=== PATIENT | female | born 1965 | race African-American/Black ===

== ENCOUNTER 2021-07-18 14:05 | Inpatient (IN) ==
[2021-07-18] MEDS ORDERED: SODIUM CHLORIDE 0.9% 500 ML IV STA (16:06)
[2021-07-18 16:09] LABS: Urine Appearance Clear (Clear); Urine Color Dark Yellow (Yellow)
[2021-07-18 16:10] LABS: Urine Specific Gravity > 1.030 (1.001-1.035)
[2021-07-18 16:11] LABS: Bilirubin,Urine Small mg/dL (Negative); Blood, Urine Trace mg/dL (Negative); Glucose,Urine (UA) Negative (Negative); Ketones,Urine 40 mg/dL (Negative); Nitrite,Urine Negative (Negative); Protein,Urine >=300 MG/DL
[2021-07-18 16:16] LABS: Mucus,Urine Moderate /LPF (Occasional); RBC,Urine 21 /HPF (0-4); Squamous Epithelial Cell,Urine Occasional /HPF (0-10)
[2021-07-18 17:19] LABS: Basophils % 0.4 % (0.0-0.8); Eosinophils # 0.1 10*3/uL (0.0-0.87); Eosinophils % 0.7 % (0.00-10.9); Hematocrit 36.4 VOL% (35.7-47.0); Hemoglobin 11.4 GM/DL (12.0-16.0); Immature Granulocytes % 0.4 %; Immature Granulocytes Absolute 0.03 #; Lymphocytes # 1.5 10*3/uL (1.4-4.0); Lymphocytes % 17.7 % (21.3-54.2); Mean Corpuscular HGB Conc 31.3 GM/DL (32-36); Mean Corpuscular Volume 96.8 FL (87-102); Mean Platelet Volume 8.1 FL (9.6-12.0); Monocytes % 4.9 % (1.7-12.7); Neutrophils % 75.9 % (38.7-73.9); Platelet Count 353 T/CUMM (130-400); Red Blood Count 3.76 MC/CUMM (3.8-5.5); Red Cell Distribution Width 13.4 % (9.3-17.3); White Blood Count 8.3 T/CUMM (4-12)
[2021-07-18 17:33] LABS: Albumin 3.3 G/DL (3.4-5.0); Bilirubin,Total 0.5 MG/DL (0.20-1.00); Calcium 9.1 MG/DL (8.5-10.1); Osmolality,Calculated 266.2 MOS/KG (273-304); Potassium 3.2 MMOL/L (3.5-5.1)
[2021-07-18] MEDS ORDERED: PIPERACILLIN/TAZOBACTAM 3,375 MG in SODIUM CHLORIDE 0.9% 100 ML IV STA (20:46)
[2021-07-18] MEDS ORDERED: ONDANSETRON 4 MG/2 ML VIAL IV PRN (20:56)
[2021-07-18] MEDS ORDERED: ACETAMINOPHEN 325 MG TABLET PO PRN (20:56)
[2021-07-18] MEDS ORDERED: MORPHINE 4 MG/1 ML VIAL IV PRN (21:15)
[2021-07-18] MEDS: SODIUM CHLORIDE 0.9% 1,000 ML IV SCH (21:30)
[2021-07-18] MEDS: HYDROmorphone 2 MG/1 ML VIAL IV PRN (23:37)
[2021-07-19] MEDS: HYDROmorphone 2 MG/1 ML VIAL IV PRN ×2 (04:35→09:00)
[2021-07-19] MEDS: PROMETHAZINE 25 MG/1 ML VIAL IM PRN (06:39)
[2021-07-19] MEDS: LEVOTHYROXINE 50 MCG TABLET PO SCH (06:39)
[2021-07-19] MEDS ORDERED: POTASSIUM CHLORIDE 20 MEQ TABLET PO PRN (07:09)
[2021-07-19] MEDS: cefTRIAXone 1,000 MG in SODIUM CHLORIDE 0.9% 100 ML IV SCH (07:30)
[2021-07-19 07:38] LABS: Basophils % 0.6 % (0.0-0.8); Eosinophils # 0.1 10*3/uL (0.0-0.87); Eosinophils % 1.1 % (0.00-10.9); Hematocrit 34.6 VOL% (35.7-47.0); Hemoglobin 10.8 GM/DL (12.0-16.0); Immature Granulocytes % 0.6 %; Immature Granulocytes Absolute 0.04 #; Lymphocytes # 1.5 10*3/uL (1.4-4.0); Lymphocytes % 24.1 % (21.3-54.2); Mean Corpuscular HGB Conc 31.2 GM/DL (32-36); Mean Platelet Volume 8.1 FL (9.6-12.0); Monocytes % 5.5 % (1.7-12.7); Neutrophils % 68.1 % (38.7-73.9); Platelet Count 345 T/CUMM (130-400); Red Blood Count 3.53 MC/CUMM (3.8-5.5); Red Cell Distribution Width 13.5 % (9.3-17.3); White Blood Count 6.2 T/CUMM (4-12)
[2021-07-19] MEDS: atenoloL 50 MG TABLET PO SCH ×2 (09:00→22:46)
[2021-07-19] MEDS: DULoxetine 30 MG CAPSULE PO SCH (09:00)
[2021-07-19] MEDS: LOSARTAN 25 MG TABLET PO SCH (09:00)
[2021-07-19] MEDS: PANTOPRAZOLE 40 MG TABLET PO SCH (09:00)
[2021-07-19] MEDS: GABAPENTIN 300 MG CAPSULE PO SCH ×3 (09:00→22:45)
[2021-07-19 09:16] LABS: Albumin 2.9 G/DL (3.4-5.0); Bilirubin,Total 0.4 MG/DL (0.20-1.00); Calcium 8.7 MG/DL (8.5-10.1); Potassium 3.4 MMOL/L (3.5-5.1); Total Protein 6.5 G/DL (6.4-8.2)
[2021-07-19] MEDS: oxyCODONE/ACETAMINOPHEN 5-325 MG TABLET PO PRN ×2 (10:00→16:57)
[2021-07-19] MEDS: HYDROXYCHLOROQUINE 200 MG TABLET PO SCH ×2 (14:05→22:45)
[2021-07-19] MEDS: SODIUM CHLORIDE 0.9% 1,000 ML IV SCH (14:08)
[2021-07-19] MEDS: POLYETHYLENE GLYCOL POWDER 17 GM PACK PO SCH (16:57)
[2021-07-20] MEDS: SODIUM CHLORIDE 0.9% 1,000 ML IV SCH ×2 (01:12→13:02)
[2021-07-20] MEDS: LEVOTHYROXINE 50 MCG TABLET PO SCH (05:34)
[2021-07-20] MEDS: HYDROmorphone 1 MG/1 ML SYRINGE IV PRN ×4 (06:28→21:28)
[2021-07-20] MEDS: PROMETHAZINE 25 MG/1 ML VIAL IM PRN (06:34)
[2021-07-20 06:37] LABS: Basophils # 0.1 10*3/uL (0.0-0.2); Basophils % 0.6 % (0.0-0.8); Eosinophils % 0.2 % (0.00-10.9); Hemoglobin 11.2 GM/DL (12.0-16.0); Immature Granulocytes % 0.7 %; Immature Granulocytes Absolute 0.06 #; Lymphocytes # 1.2 10*3/uL (1.4-4.0); Lymphocytes % 14.8 % (21.3-54.2); Mean Corpuscular HGB Conc 31.1 GM/DL (32-36); Mean Corpuscular Volume 98.1 FL (87-102); Mean Platelet Volume 8.1 FL (9.6-12.0); Monocytes % 4.7 % (1.7-12.7); Platelet Count 390 T/CUMM (130-400); Red Blood Count 3.67 MC/CUMM (3.8-5.5); Red Cell Distribution Width 13.2 % (9.3-17.3); White Blood Count 8.4 T/CUMM (4-12)
[2021-07-20 06:49] LABS: Calcium 9.1 MG/DL (8.5-10.1); Osmolality,Calculated 256.8 MOS/KG (273-304); Potassium 3.2 MMOL/L (3.5-5.1)
[2021-07-20] MEDS: POLYETHYLENE GLYCOL POWDER 17 GM PACK PO SCH ×2 (10:40→21:26)
[2021-07-20] MEDS: GABAPENTIN 300 MG CAPSULE PO SCH ×3 (10:40→21:26)
[2021-07-20] MEDS: PANTOPRAZOLE 40 MG TABLET PO SCH (10:40)
[2021-07-20] MEDS: LOSARTAN 25 MG TABLET PO SCH (10:40)
[2021-07-20] MEDS: atenoloL 50 MG TABLET PO SCH ×2 (10:40→21:26)
[2021-07-20] MEDS: DULoxetine 30 MG CAPSULE PO SCH (10:40)
[2021-07-20] MEDS: HYDROXYCHLOROQUINE 200 MG TABLET PO SCH ×2 (10:40→21:26)
[2021-07-20] MEDS: cefTRIAXone 1,000 MG in SODIUM CHLORIDE 0.9% 100 ML IV SCH (10:42)
[2021-07-20] MEDS: VANCOMYCIN INJ 1,250 MG in SODIUM CHLORIDE 0.9% 250 ML IV SCH ×2 (11:28→21:27)
[2021-07-20] MEDS ORDERED: POTASSIUM CHLORIDE 20 MEQ TABLET PO ONE (13:00)
[2021-07-20] MEDS: MAGNESIUM CHLORIDE 64 MG TABLET PO SCH (13:02)
[2021-07-20] MEDS: DOCUSATE SODIUM 100 MG CAPSULE PO SCH (21:24)
[2021-07-21] MEDS: HYDROmorphone 1 MG/1 ML SYRINGE IV PRN ×3 (02:17→22:05)
[2021-07-21] MEDS: SODIUM CHLORIDE 0.9% 1,000 ML IV SCH ×2 (02:47→17:29)
[2021-07-21] MEDS: oxyCODONE/ACETAMINOPHEN 5-325 MG TABLET PO PRN ×2 (05:03→10:30)
[2021-07-21] MEDS: PROMETHAZINE 25 MG/1 ML VIAL IM PRN (05:07)
[2021-07-21 05:23] LABS: Basophils # 0.1 10*3/uL (0.0-0.2); Basophils % 0.9 % (0.0-0.8); Eosinophils # 0.1 10*3/uL (0.0-0.87); Eosinophils % 1.4 % (0.00-10.9); Hematocrit 37.6 VOL% (35.7-47.0); Hemoglobin 11.7 GM/DL (12.0-16.0); Immature Granulocytes % 0.7 %; Immature Granulocytes Absolute 0.05 #; Lymphocytes # 1.4 10*3/uL (1.4-4.0); Lymphocytes % 19.3 % (21.3-54.2); Mean Corpuscular HGB Conc 31.1 GM/DL (32-36); Mean Corpuscular Volume 97.7 FL (87-102); Mean Platelet Volume 8.1 FL (9.6-12.0); Neutrophils % 70.7 % (38.7-73.9); Platelet Count 375 T/CUMM (130-400); Red Blood Count 3.85 MC/CUMM (3.8-5.5); Red Cell Distribution Width 13.4 % (9.3-17.3); White Blood Count 7.1 T/CUMM (4-12)
[2021-07-21 05:51] LABS: Calcium 8.9 MG/DL (8.5-10.1); Osmolality,Calculated 267.1 MOS/KG (273-304); Potassium 3.6 MMOL/L (3.5-5.1)
[2021-07-21] MEDS: LEVOTHYROXINE 50 MCG TABLET PO SCH (06:01)
[2021-07-21] MEDS: LINACLOTIDE 145 MCG CAPSULE PO SCH (10:27)
[2021-07-21] MEDS: DOCUSATE SODIUM 100 MG CAPSULE PO SCH ×2 (10:27→22:01)
[2021-07-21] MEDS: MAGNESIUM CHLORIDE 64 MG TABLET PO SCH (10:28)
[2021-07-21] MEDS: DULoxetine 30 MG CAPSULE PO SCH (10:28)
[2021-07-21] MEDS: LOSARTAN 25 MG TABLET PO SCH (10:29)
[2021-07-21] MEDS: GABAPENTIN 300 MG CAPSULE PO SCH ×3 (10:29→22:00)
[2021-07-21] MEDS: HYDROXYCHLOROQUINE 200 MG TABLET PO SCH ×2 (10:29→22:00)
[2021-07-21] MEDS: PANTOPRAZOLE 40 MG TABLET PO SCH (10:29)
[2021-07-21] MEDS: atenoloL 50 MG TABLET PO SCH ×2 (10:29→22:00)
[2021-07-21] MEDS: POLYETHYLENE GLYCOL POWDER 17 GM PACK PO SCH ×2 (10:30→22:01)
[2021-07-21] MEDS: CHOLECALCIFEROL 1,000 UNIT TABLET PO SCH (10:35)
[2021-07-21] MEDS: POTASSIUM CHLORIDE 20 MEQ TABLET PO SCH (10:40)
[2021-07-21] MEDS: VANCOMYCIN INJ 1,250 MG in SODIUM CHLORIDE 0.9% 250 ML IV SCH ×2 (10:41→21:59)
[2021-07-21] MEDS: MULTIVITAMIN (BEROCCA) TABLET PO SCH (14:57)
[2021-07-21] MEDS: APIXABAN 5 MG TABLET PO SCH (22:12)
[2021-07-22] MEDS: HYDROmorphone 1 MG/1 ML SYRINGE IV PRN ×4 (02:59→21:43)
[2021-07-22 05:48] LABS: Basophils # 0.1 10*3/uL (0.0-0.2); Basophils % 0.9 % (0.0-0.8); Eosinophils # 0.1 10*3/uL (0.0-0.87); Eosinophils % 1.3 % (0.00-10.9); Hematocrit 40.5 VOL% (35.7-47.0); Hemoglobin 12.3 GM/DL (12.0-16.0); Immature Granulocytes % 0.4 %; Immature Granulocytes Absolute 0.03 #; Lymphocytes # 1.7 10*3/uL (1.4-4.0); Lymphocytes % 21.2 % (21.3-54.2); Mean Corpuscular HGB Conc 30.4 GM/DL (32-36); Mean Platelet Volume 8.3 FL (9.6-12.0); Monocytes % 5.3 % (1.7-12.7); Neutrophils % 70.9 % (38.7-73.9); Platelet Count 408 T/CUMM (130-400); Red Blood Count 4.09 MC/CUMM (3.8-5.5); Red Cell Distribution Width 13.5 % (9.3-17.3); White Blood Count 7.9 T/CUMM (4-12)
[2021-07-22 05:58] LABS: Calcium 9.6 MG/DL (8.5-10.1); Potassium 3.5 MMOL/L (3.5-5.1)
[2021-07-22] MEDS: LEVOTHYROXINE 50 MCG TABLET PO SCH (06:28)
[2021-07-22] MEDS: SODIUM CHLORIDE 0.9% 1,000 ML IV SCH (09:50)
[2021-07-22] MEDS: DULoxetine 30 MG CAPSULE PO SCH (09:51)
[2021-07-22] MEDS: atenoloL 50 MG TABLET PO SCH ×2 (09:51→21:39)
[2021-07-22] MEDS: POTASSIUM CHLORIDE 20 MEQ TABLET PO SCH (09:52)
[2021-07-22] MEDS: MAGNESIUM CHLORIDE 64 MG TABLET PO SCH (09:52)
[2021-07-22] MEDS: DOCUSATE SODIUM 100 MG CAPSULE PO SCH ×2 (09:52→21:39)
[2021-07-22] MEDS: CHOLECALCIFEROL 1,000 UNIT TABLET PO SCH (09:53)
[2021-07-22] MEDS: HYDROXYCHLOROQUINE 200 MG TABLET PO SCH ×2 (09:54→21:39)
[2021-07-22] MEDS: PANTOPRAZOLE 40 MG TABLET PO SCH (09:54)
[2021-07-22] MEDS: LOSARTAN 25 MG TABLET PO SCH (09:55)
[2021-07-22] MEDS: GABAPENTIN 300 MG CAPSULE PO SCH ×3 (09:55→21:39)
[2021-07-22] MEDS: LINACLOTIDE 145 MCG CAPSULE PO SCH (09:55)
[2021-07-22] MEDS: APIXABAN 5 MG TABLET PO SCH ×2 (09:55→21:39)
[2021-07-22] MEDS: POLYETHYLENE GLYCOL POWDER 17 GM PACK PO SCH ×2 (09:56→21:28)
[2021-07-22] MEDS: VANCOMYCIN INJ 1,250 MG in SODIUM CHLORIDE 0.9% 250 ML IV SCH ×2 (10:05→22:25)
[2021-07-22] MEDS: MULTIVITAMIN (BEROCCA) TABLET PO SCH (10:06)
[2021-07-22] MEDS: oxyCODONE/ACETAMINOPHEN 5-325 MG TABLET PO PRN (13:22)
[2021-07-22] MEDS ORDERED: TAMSULOSIN 0.4 MG CAPSULE PO ONE (15:14)
[2021-07-22] MEDS: PHENAZOPYRIDINE 95 MG TABLET PO SCH (17:10)
[2021-07-22] MEDS: TAMSULOSIN 0.4 MG CAPSULE PO SCH (21:39)
[2021-07-23] MEDS: oxyCODONE/ACETAMINOPHEN 5-325 MG TABLET PO PRN (03:50)
[2021-07-23] MEDS: LEVOTHYROXINE 50 MCG TABLET PO SCH (05:51)
[2021-07-23] MEDS: HYDROmorphone 1 MG/1 ML SYRINGE IV PRN ×4 (05:58→21:01)
[2021-07-23 06:25] LABS: Basophils # 0.1 10*3/uL (0.0-0.2); Eosinophils # 0.1 10*3/uL (0.0-0.87); Eosinophils % 1.6 % (0.00-10.9); Hematocrit 33.9 VOL% (35.7-47.0); Hemoglobin 10.7 GM/DL (12.0-16.0); Immature Granulocytes % 0.8 %; Immature Granulocytes Absolute 0.05 #; Lymphocytes # 1.2 10*3/uL (1.4-4.0); Lymphocytes % 19.5 % (21.3-54.2); Mean Corpuscular HGB Conc 31.6 GM/DL (32-36); Mean Corpuscular Volume 97.4 FL (87-102); Monocytes % 7.2 % (1.7-12.7); Neutrophils % 69.9 % (38.7-73.9); Platelet Count 340 T/CUMM (130-400); Red Blood Count 3.48 MC/CUMM (3.8-5.5); Red Cell Distribution Width 13.8 % (9.3-17.3); White Blood Count 6.3 T/CUMM (4-12)
[2021-07-23 06:47] LABS: Calcium 8.7 MG/DL (8.5-10.1); Osmolality,Calculated 274.5 MOS/KG (273-304); Potassium 3.3 MMOL/L (3.5-5.1)
[2021-07-23] MEDS: MAGNESIUM CHLORIDE 64 MG TABLET PO SCH (10:22)
[2021-07-23] MEDS: HYDROXYCHLOROQUINE 200 MG TABLET PO SCH ×2 (10:23→20:56)
[2021-07-23] MEDS: DULoxetine 30 MG CAPSULE PO SCH (10:23)
[2021-07-23] MEDS: DOCUSATE SODIUM 100 MG CAPSULE PO SCH ×2 (10:24→21:01)
[2021-07-23] MEDS: MULTIVITAMIN (BEROCCA) TABLET PO SCH (10:24)
[2021-07-23] MEDS: PHENAZOPYRIDINE 95 MG TABLET PO SCH ×2 (10:24→16:04)
[2021-07-23] MEDS: LOSARTAN 25 MG TABLET PO SCH (10:24)
[2021-07-23] MEDS: APIXABAN 5 MG TABLET PO SCH ×2 (10:25→20:57)
[2021-07-23] MEDS: POTASSIUM CHLORIDE 20 MEQ TABLET PO SCH (10:26)
[2021-07-23] MEDS: GABAPENTIN 300 MG CAPSULE PO SCH ×3 (10:26→20:56)
[2021-07-23] MEDS: atenoloL 50 MG TABLET PO SCH ×2 (10:27→20:57)
[2021-07-23] MEDS: PANTOPRAZOLE 40 MG TABLET PO SCH (10:27)
[2021-07-23] MEDS: CHOLECALCIFEROL 1,000 UNIT TABLET PO SCH (10:28)
[2021-07-23] MEDS: VANCOMYCIN INJ 1,250 MG in SODIUM CHLORIDE 0.9% 250 ML IV SCH ×2 (10:28→21:31)
[2021-07-23] MEDS: SODIUM CHLORIDE 0.9% 1,000 ML IV SCH ×2 (10:29→17:13)
[2021-07-23] MEDS: LINACLOTIDE 145 MCG CAPSULE PO SCH (10:32)
[2021-07-23] MEDS: POLYETHYLENE GLYCOL POWDER 17 GM PACK PO SCH ×2 (10:33→21:01)
[2021-07-23 11:19] LABS: Bacteria,Urine Occasional /HPF (Few); Mucus,Urine Moderate /LPF (Occasional); RBC,Urine 5 /HPF (0-4); Squamous Epithelial Cell,Urine Occasional /HPF (0-10)
[2021-07-23 11:20] LABS: Protein,Urine Negative (Negative); Urine Appearance Clear (Clear); Urine Color Amber (Yellow); Urine pH 5.5 (4.5-8.0)
[2021-07-23 11:21] LABS: Bilirubin,Urine Negative (Negative); Blood, Urine Trace mg/dL (Negative); Glucose,Urine (UA) Negative (Negative); Ketones,Urine Negative (Negative); Nitrite,Urine Positive (Negative); Urine Urobilinogen 0.2 eU/dL (<2.0)
[2021-07-23] MEDS ORDERED: cefTRIAXone 1,000 MG in SODIUM CHLORIDE 0.9% 100 ML IV SCH (13:30)
[2021-07-23] MEDS: TAMSULOSIN 0.4 MG CAPSULE PO SCH (20:56)
[2021-07-23] MEDS: LUBIPROSTONE 8 MCG CAPSULE PO SCH (20:56)
[2021-07-24] MEDS: HYDROmorphone 1 MG/1 ML SYRINGE IV PRN ×5 (01:51→21:34)
[2021-07-24] MEDS: SODIUM CHLORIDE 0.9% 1,000 ML IV SCH (05:44)
[2021-07-24 05:47] LABS: Basophils # 0.1 10*3/uL (0.0-0.2); Basophils % 0.9 % (0.0-0.8); Eosinophils # 0.1 10*3/uL (0.0-0.87); Eosinophils % 1.2 % (0.00-10.9); Hematocrit 34.8 VOL% (35.7-47.0); Hemoglobin 10.7 GM/DL (12.0-16.0); Immature Granulocytes % 0.5 %; Immature Granulocytes Absolute 0.03 #; Lymphocytes # 1.6 10*3/uL (1.4-4.0); Lymphocytes % 24.4 % (21.3-54.2); Mean Corpuscular HGB Conc 30.7 GM/DL (32-36); Mean Platelet Volume 8.2 FL (9.6-12.0); Monocytes % 6.8 % (1.7-12.7); Neutrophils % 66.2 % (38.7-73.9); Platelet Count 292 T/CUMM (130-400); Red Blood Count 3.55 MC/CUMM (3.8-5.5); Red Cell Distribution Width 13.8 % (9.3-17.3); White Blood Count 6.4 T/CUMM (4-12)
[2021-07-24] MEDS: LEVOTHYROXINE 50 MCG TABLET PO SCH (05:47)
[2021-07-24 06:20] LABS: Free T4 (Free Thyroxine) 0.62 NG/DL (0.76-1.46); Thyroid Stimulating Hormone 69.9 uIU/ml (0.358-3.74)
[2021-07-24 06:39] LABS: Calcium 8.9 MG/DL (8.5-10.1); Osmolality,Calculated 273.5 MOS/KG (273-304); Potassium 3.9 MMOL/L (3.5-5.1)
[2021-07-24] MEDS: LUBIPROSTONE 8 MCG CAPSULE PO SCH ×2 (09:26→21:23)
[2021-07-24] MEDS: LINACLOTIDE 145 MCG CAPSULE PO SCH (09:26)
[2021-07-24] MEDS: PANTOPRAZOLE 40 MG TABLET PO SCH (09:27)
[2021-07-24] MEDS: MULTIVITAMIN (BEROCCA) TABLET PO SCH (09:27)
[2021-07-24] MEDS: DULoxetine 30 MG CAPSULE PO SCH (09:27)
[2021-07-24] MEDS: PHENAZOPYRIDINE 95 MG TABLET PO SCH ×2 (09:27→17:08)
[2021-07-24] MEDS: CHOLECALCIFEROL 1,000 UNIT TABLET PO SCH (09:27)
[2021-07-24] MEDS: POTASSIUM CHLORIDE 20 MEQ TABLET PO SCH (09:27)
[2021-07-24] MEDS: LOSARTAN 25 MG TABLET PO SCH (09:28)
[2021-07-24] MEDS: MAGNESIUM CHLORIDE 64 MG TABLET PO SCH (09:28)
[2021-07-24] MEDS: atenoloL 50 MG TABLET PO SCH ×2 (09:28→21:23)
[2021-07-24] MEDS: APIXABAN 5 MG TABLET PO SCH ×2 (09:28→21:23)
[2021-07-24] MEDS: DOCUSATE SODIUM 100 MG CAPSULE PO SCH ×2 (09:28→21:24)
[2021-07-24] MEDS: GABAPENTIN 300 MG CAPSULE PO SCH ×3 (09:28→21:23)
[2021-07-24] MEDS: HYDROXYCHLOROQUINE 200 MG TABLET PO SCH ×2 (09:28→21:23)
[2021-07-24] MEDS: POLYETHYLENE GLYCOL POWDER 17 GM PACK PO SCH ×2 (09:29→21:24)
[2021-07-24] MEDS: VANCOMYCIN INJ 1,250 MG in SODIUM CHLORIDE 0.9% 250 ML IV SCH (10:14)
[2021-07-24] MEDS: CEFTAROLINE 600 MG in SODIUM CHLORIDE 0.9% 100 ML IV SCH ×2 (13:17→21:22)
[2021-07-24] MEDS: TAMSULOSIN 0.4 MG CAPSULE PO SCH (21:23)
[2021-07-25] MEDS: HYDROmorphone 1 MG/1 ML SYRINGE IV PRN ×6 (01:07→22:29)
[2021-07-25] MEDS: SODIUM CHLORIDE 0.9% 1,000 ML IV SCH ×3 (04:21→16:33)
[2021-07-25] MEDS: VANCOMYCIN INJ 1,250 MG in SODIUM CHLORIDE 0.9% 250 ML IV SCH ×3 (04:29→22:26)
[2021-07-25 06:02] LABS: Basophils # 0.1 10*3/uL (0.0-0.2); Basophils % 0.9 % (0.0-0.8); Eosinophils # 0.1 10*3/uL (0.0-0.87); Eosinophils % 1.5 % (0.00-10.9); Hematocrit 32.7 VOL% (35.7-47.0); Hemoglobin 10.2 GM/DL (12.0-16.0); Immature Granulocytes % 0.5 %; Immature Granulocytes Absolute 0.03 #; Lymphocytes # 1.3 10*3/uL (1.4-4.0); Lymphocytes % 19.4 % (21.3-54.2); Mean Corpuscular HGB Conc 31.2 GM/DL (32-36); Mean Platelet Volume 8.3 FL (9.6-12.0); Monocytes % 6.4 % (1.7-12.7); Neutrophils % 71.3 % (38.7-73.9); Platelet Count 302 T/CUMM (130-400); Red Blood Count 3.37 MC/CUMM (3.8-5.5); White Blood Count 6.6 T/CUMM (4-12)
[2021-07-25 06:12] LABS: Calcium 8.6 MG/DL (8.5-10.1); Osmolality,Calculated 277.3 MOS/KG (273-304); Potassium 3.4 MMOL/L (3.5-5.1)
[2021-07-25] MEDS: LEVOTHYROXINE 137 MCG TABLET PO SCH (06:12)
[2021-07-25] MEDS: CEFTAROLINE 600 MG in SODIUM CHLORIDE 0.9% 100 ML IV SCH ×3 (07:14→20:56)
[2021-07-25] MEDS: CHOLECALCIFEROL 1,000 UNIT TABLET PO SCH (08:58)
[2021-07-25] MEDS: DULoxetine 30 MG CAPSULE PO SCH (08:58)
[2021-07-25] MEDS: LUBIPROSTONE 8 MCG CAPSULE PO SCH ×2 (08:58→20:57)
[2021-07-25] MEDS: atenoloL 50 MG TABLET PO SCH ×2 (08:58→20:57)
[2021-07-25] MEDS: PANTOPRAZOLE 40 MG TABLET PO SCH (08:58)
[2021-07-25] MEDS: LOSARTAN 25 MG TABLET PO SCH (08:59)
[2021-07-25] MEDS: HYDROXYCHLOROQUINE 200 MG TABLET PO SCH ×2 (08:59→20:57)
[2021-07-25] MEDS: GABAPENTIN 300 MG CAPSULE PO SCH ×3 (08:59→20:57)
[2021-07-25] MEDS: APIXABAN 5 MG TABLET PO SCH ×2 (08:59→20:57)
[2021-07-25] MEDS: MULTIVITAMIN (BEROCCA) TABLET PO SCH (08:59)
[2021-07-25] MEDS: MAGNESIUM CHLORIDE 64 MG TABLET PO SCH (08:59)
[2021-07-25] MEDS: POTASSIUM CHLORIDE 20 MEQ TABLET PO SCH (09:04)
[2021-07-25] MEDS: PHENAZOPYRIDINE 95 MG TABLET PO SCH ×2 (09:04→16:33)
[2021-07-25] MEDS: LINACLOTIDE 145 MCG CAPSULE PO SCH (10:15)
[2021-07-25] MEDS: DOCUSATE SODIUM 100 MG CAPSULE PO SCH ×2 (10:15→21:38)
[2021-07-25] MEDS: POLYETHYLENE GLYCOL POWDER 17 GM PACK PO SCH ×2 (10:16→21:38)
[2021-07-25] MEDS: TAMSULOSIN 0.4 MG CAPSULE PO SCH (20:57)
[2021-07-26] MEDS: CEFTAROLINE 600 MG in SODIUM CHLORIDE 0.9% 100 ML IV SCH ×3 (05:41→20:50)
[2021-07-26 06:04] LABS: Basophils # 0.1 10*3/uL (0.0-0.2); Basophils % 1.1 % (0.0-0.8); Eosinophils # 0.1 10*3/uL (0.0-0.87); Eosinophils % 2.4 % (0.00-10.9); Hematocrit 32.9 VOL% (35.7-47.0); Hemoglobin 10.1 GM/DL (12.0-16.0); Immature Granulocytes % 0.2 %; Immature Granulocytes Absolute 0.01 #; Lymphocytes # 1.3 10*3/uL (1.4-4.0); Lymphocytes % 23.7 % (21.3-54.2); Mean Corpuscular HGB Conc 30.7 GM/DL (32-36); Mean Platelet Volume 8.3 FL (9.6-12.0); Monocytes % 8.1 % (1.7-12.7); Neutrophils % 64.5 % (38.7-73.9); Platelet Count 298 T/CUMM (130-400); Red Blood Count 3.29 MC/CUMM (3.8-5.5); Red Cell Distribution Width 13.9 % (9.3-17.3); White Blood Count 5.4 T/CUMM (4-12)
[2021-07-26] MEDS: HYDROmorphone 1 MG/1 ML SYRINGE IV PRN ×4 (06:16→20:49)
[2021-07-26] MEDS: LEVOTHYROXINE 137 MCG TABLET PO SCH (06:17)
[2021-07-26 06:21] LABS: Calcium 9.3 MG/DL (8.5-10.1); Osmolality,Calculated 280.1 MOS/KG (273-304); Potassium 3.6 MMOL/L (3.5-5.1)
[2021-07-26] MEDS: SODIUM CHLORIDE 0.9% 1,000 ML IV SCH ×3 (08:30→20:50)
[2021-07-26] MEDS: MAGNESIUM CHLORIDE 64 MG TABLET PO SCH (08:50)
[2021-07-26] MEDS: CHOLECALCIFEROL 1,000 UNIT TABLET PO SCH (08:50)
[2021-07-26] MEDS: LOSARTAN 25 MG TABLET PO SCH (08:51)
[2021-07-26] MEDS: GABAPENTIN 300 MG CAPSULE PO SCH ×3 (08:51→20:48)
[2021-07-26] MEDS: MULTIVITAMIN (BEROCCA) TABLET PO SCH (08:51)
[2021-07-26] MEDS: PHENAZOPYRIDINE 95 MG TABLET PO SCH ×2 (08:51→17:39)
[2021-07-26] MEDS: DULoxetine 30 MG CAPSULE PO SCH (08:51)
[2021-07-26] MEDS: POTASSIUM CHLORIDE 20 MEQ TABLET PO SCH (08:51)
[2021-07-26] MEDS: LUBIPROSTONE 8 MCG CAPSULE PO SCH ×2 (08:51→20:48)
[2021-07-26] MEDS: PANTOPRAZOLE 40 MG TABLET PO SCH (08:52)
[2021-07-26] MEDS: HYDROXYCHLOROQUINE 200 MG TABLET PO SCH ×2 (08:52→20:48)
[2021-07-26] MEDS: atenoloL 50 MG TABLET PO SCH ×2 (08:52→20:48)
[2021-07-26] MEDS: APIXABAN 5 MG TABLET PO SCH ×2 (08:52→20:48)
[2021-07-26] MEDS: LINACLOTIDE 145 MCG CAPSULE PO SCH (08:53)
[2021-07-26] MEDS: DOCUSATE SODIUM 100 MG CAPSULE PO SCH ×2 (08:57→20:49)
[2021-07-26] MEDS: POLYETHYLENE GLYCOL POWDER 17 GM PACK PO SCH ×2 (08:57→20:49)
[2021-07-26] MEDS: VANCOMYCIN INJ 1,250 MG in SODIUM CHLORIDE 0.9% 250 ML IV SCH (17:39)
[2021-07-26] MEDS: TAMSULOSIN 0.4 MG CAPSULE PO SCH (20:49)
[2021-07-26] MEDS: PROMETHAZINE 25 MG/1 ML VIAL IM PRN (22:37)
[2021-07-27] MEDS: HYDROmorphone 1 MG/1 ML SYRINGE IV PRN ×4 (02:17→20:18)
[2021-07-27] MEDS: CEFTAROLINE 600 MG in SODIUM CHLORIDE 0.9% 100 ML IV SCH ×4 (05:32→19:41)
[2021-07-27] MEDS: LEVOTHYROXINE 137 MCG TABLET PO SCH (05:33)
[2021-07-27] MEDS: LUBIPROSTONE 8 MCG CAPSULE PO SCH ×2 (09:37→20:10)
[2021-07-27] MEDS: DULoxetine 30 MG CAPSULE PO SCH (09:37)
[2021-07-27] MEDS: MULTIVITAMIN (BEROCCA) TABLET PO SCH (09:37)
[2021-07-27] MEDS: MAGNESIUM CHLORIDE 64 MG TABLET PO SCH (09:37)
[2021-07-27] MEDS: PANTOPRAZOLE 40 MG TABLET PO SCH (09:38)
[2021-07-27] MEDS: LOSARTAN 25 MG TABLET PO SCH (09:38)
[2021-07-27] MEDS: GABAPENTIN 300 MG CAPSULE PO SCH ×3 (09:38→20:11)
[2021-07-27] MEDS: APIXABAN 5 MG TABLET PO SCH ×2 (09:38→20:11)
[2021-07-27] MEDS: DOCUSATE SODIUM 100 MG CAPSULE PO SCH ×2 (09:38→20:11)
[2021-07-27] MEDS: atenoloL 50 MG TABLET PO SCH ×2 (09:38→20:18)
[2021-07-27] MEDS: POTASSIUM CHLORIDE 20 MEQ TABLET PO SCH (09:38)
[2021-07-27] MEDS: HYDROXYCHLOROQUINE 200 MG TABLET PO SCH ×2 (09:38→20:11)
[2021-07-27] MEDS: PHENAZOPYRIDINE 95 MG TABLET PO SCH ×2 (09:39→19:41)
[2021-07-27] MEDS: LINACLOTIDE 145 MCG CAPSULE PO SCH (09:39)
[2021-07-27] MEDS: POLYETHYLENE GLYCOL POWDER 17 GM PACK PO SCH ×2 (10:56→20:11)
[2021-07-27] MEDS: VANCOMYCIN INJ 1,250 MG in SODIUM CHLORIDE 0.9% 250 ML IV SCH (11:15)
[2021-07-27] MEDS: CHOLECALCIFEROL 1,000 UNIT TABLET PO SCH (11:15)
[2021-07-27] MEDS: oxyCODONE/ACETAMINOPHEN 5-325 MG TABLET PO PRN (13:46)
[2021-07-27] MEDS: SODIUM CHLORIDE 0.9% 1,000 ML IV SCH ×2 (13:47→19:42)
[2021-07-27] MEDS: TAMSULOSIN 0.4 MG CAPSULE PO SCH (20:11)
[2021-07-28] MEDS: HYDROmorphone 1 MG/1 ML SYRINGE IV PRN ×5 (00:50→21:26)
[2021-07-28] MEDS: CEFTAROLINE 600 MG in SODIUM CHLORIDE 0.9% 100 ML IV SCH ×3 (02:32→21:23)
[2021-07-28] MEDS: VANCOMYCIN INJ 1,250 MG in SODIUM CHLORIDE 0.9% 250 ML IV SCH ×2 (04:01→22:32)
[2021-07-28] MEDS: oxyCODONE/ACETAMINOPHEN 5-325 MG TABLET PO PRN (05:38)
[2021-07-28] MEDS: LEVOTHYROXINE 137 MCG TABLET PO SCH (05:39)
[2021-07-28] MEDS: LUBIPROSTONE 8 MCG CAPSULE PO SCH ×2 (08:42→21:25)
[2021-07-28] MEDS: LOSARTAN 25 MG TABLET PO SCH (08:42)
[2021-07-28] MEDS: CHOLECALCIFEROL 1,000 UNIT TABLET PO SCH (08:42)
[2021-07-28] MEDS: GABAPENTIN 300 MG CAPSULE PO SCH ×3 (08:42→21:26)
[2021-07-28] MEDS: POTASSIUM CHLORIDE 20 MEQ TABLET PO SCH (08:42)
[2021-07-28] MEDS: HYDROXYCHLOROQUINE 200 MG TABLET PO SCH ×2 (08:43→21:26)
[2021-07-28] MEDS: PHENAZOPYRIDINE 95 MG TABLET PO SCH ×2 (08:43→16:30)
[2021-07-28] MEDS: atenoloL 50 MG TABLET PO SCH ×2 (08:43→21:25)
[2021-07-28] MEDS: DULoxetine 30 MG CAPSULE PO SCH (08:43)
[2021-07-28] MEDS: MULTIVITAMIN (BEROCCA) TABLET PO SCH (08:43)
[2021-07-28] MEDS: MAGNESIUM CHLORIDE 64 MG TABLET PO SCH (08:43)
[2021-07-28] MEDS: PANTOPRAZOLE 40 MG TABLET PO SCH (08:43)
[2021-07-28] MEDS: APIXABAN 5 MG TABLET PO SCH ×2 (08:43→21:25)
[2021-07-28] MEDS: DOCUSATE SODIUM 100 MG CAPSULE PO SCH ×2 (10:30→21:26)
[2021-07-28] MEDS: LINACLOTIDE 145 MCG CAPSULE PO SCH (10:30)
[2021-07-28] MEDS: POLYETHYLENE GLYCOL POWDER 17 GM PACK PO SCH ×2 (10:31→21:24)
[2021-07-28] MEDS: SODIUM CHLORIDE 0.9% 1,000 ML IV SCH (11:07)
[2021-07-28] MEDS: PROMETHAZINE 25 MG/1 ML VIAL IM PRN (17:03)
[2021-07-28] MEDS: OXYBUTYNIN XL 10 MG TABLET PO SCH (18:49)
[2021-07-28] MEDS: TAMSULOSIN 0.4 MG CAPSULE PO SCH (21:25)
[2021-07-29] MEDS: CEFTAROLINE 600 MG in SODIUM CHLORIDE 0.9% 100 ML IV SCH ×3 (03:35→19:59)
[2021-07-29] MEDS: HYDROmorphone 1 MG/1 ML SYRINGE IV PRN ×5 (03:35→20:01)
[2021-07-29] MEDS: LEVOTHYROXINE 137 MCG TABLET PO SCH (06:15)
[2021-07-29] MEDS: SODIUM CHLORIDE 0.9% 1,000 ML IV SCH ×2 (07:18→14:52)
[2021-07-29] MEDS: LUBIPROSTONE 8 MCG CAPSULE PO SCH ×2 (10:34→20:01)
[2021-07-29] MEDS: OXYBUTYNIN XL 10 MG TABLET PO SCH (10:34)
[2021-07-29] MEDS: POLYETHYLENE GLYCOL POWDER 17 GM PACK PO SCH ×2 (10:34→22:25)
[2021-07-29] MEDS: HYDROXYCHLOROQUINE 200 MG TABLET PO SCH ×2 (10:35→20:01)
[2021-07-29] MEDS: LOSARTAN 25 MG TABLET PO SCH (10:35)
[2021-07-29] MEDS: MAGNESIUM CHLORIDE 64 MG TABLET PO SCH (10:35)
[2021-07-29] MEDS: POTASSIUM CHLORIDE 20 MEQ TABLET PO SCH (10:35)
[2021-07-29] MEDS: APIXABAN 5 MG TABLET PO SCH ×2 (10:35→20:01)
[2021-07-29] MEDS: GABAPENTIN 300 MG CAPSULE PO SCH ×3 (10:35→20:01)
[2021-07-29] MEDS: atenoloL 50 MG TABLET PO SCH ×2 (10:35→20:01)
[2021-07-29] MEDS: PANTOPRAZOLE 40 MG TABLET PO SCH (10:36)
[2021-07-29] MEDS: PHENAZOPYRIDINE 95 MG TABLET PO SCH ×2 (10:36→16:26)
[2021-07-29] MEDS: CHOLECALCIFEROL 1,000 UNIT TABLET PO SCH (10:36)
[2021-07-29] MEDS: MULTIVITAMIN (BEROCCA) TABLET PO SCH (10:36)
[2021-07-29] MEDS: DULoxetine 30 MG CAPSULE PO SCH (10:36)
[2021-07-29] MEDS: oxyCODONE/ACETAMINOPHEN 5-325 MG TABLET PO PRN (10:42)
[2021-07-29] MEDS: LINACLOTIDE 145 MCG CAPSULE PO SCH (11:02)
[2021-07-29] MEDS: DOCUSATE SODIUM 100 MG CAPSULE PO SCH ×2 (11:02→20:01)
[2021-07-29 14:28] LABS: Basophils # 0.1 10*3/uL (0.0-0.2); Basophils % 1.7 % (0.0-0.8); Eosinophils # 0.1 10*3/uL (0.0-0.87); Eosinophils % 2.2 % (0.00-10.9); Hematocrit 31.3 VOL% (35.7-47.0); Hemoglobin 9.6 GM/DL (12.0-16.0); Immature Granulocytes % 0.3 %; Immature Granulocytes Absolute 0.02 #; Lymphocytes # 1.7 10*3/uL (1.4-4.0); Lymphocytes % 28.4 % (21.3-54.2); Mean Corpuscular HGB Conc 30.7 GM/DL (32-36); Mean Corpuscular Volume 98.7 FL (87-102); Mean Platelet Volume 8.6 FL (9.6-12.0); Monocytes % 10.5 % (1.7-12.7); Neutrophils % 56.9 % (38.7-73.9); Platelet Count 261 T/CUMM (130-400); Red Blood Count 3.17 MC/CUMM (3.8-5.5); Red Cell Distribution Width 13.8 % (9.3-17.3); White Blood Count 5.9 T/CUMM (4-12)
[2021-07-29 14:42] LABS: Calcium 8.8 MG/DL (8.5-10.1); Osmolality,Calculated 276.4 MOS/KG (273-304); Potassium 3.2 MMOL/L (3.5-5.1)
[2021-07-29 15:08] LABS: Anisocytosis Slight; Atypical Lymphocytes Few; Eosinophils 4 % (0-10); Hypochromia Slight; Lymphocytes 27 % (20-55); Macrocytosis Slight; Platelet Estimate Normal; Polychromasia Few; Segmented Neutrophils 56 % (50-85); Total Cells Counted 100
[2021-07-29] MEDS: VANCOMYCIN INJ 1,250 MG in SODIUM CHLORIDE 0.9% 250 ML IV SCH (16:27)
[2021-07-29] MEDS: TAMSULOSIN 0.4 MG CAPSULE PO SCH (20:01)
[2021-07-30] MEDS: HYDROmorphone 1 MG/1 ML SYRINGE IV PRN ×5 (01:55→21:26)
[2021-07-30] MEDS: CEFTAROLINE 600 MG in SODIUM CHLORIDE 0.9% 100 ML IV SCH ×3 (04:26→20:30)
[2021-07-30] MEDS: LEVOTHYROXINE 137 MCG TABLET PO SCH ×2 (04:27)
[2021-07-30 07:36] LABS: Basophils # 0.1 10*3/uL (0.0-0.2); Basophils % 1.8 % (0.0-0.8); Eosinophils # 0.1 10*3/uL (0.0-0.87); Eosinophils % 2.2 % (0.00-10.9); Hematocrit 31.9 VOL% (35.7-47.0); Hemoglobin 9.8 GM/DL (12.0-16.0); Immature Granulocytes % 0.2 %; Immature Granulocytes Absolute 0.01 #; Lymphocytes # 1.5 10*3/uL (1.4-4.0); Lymphocytes % 30.2 % (21.3-54.2); Mean Corpuscular HGB Conc 30.7 GM/DL (32-36); Mean Corpuscular Volume 97.9 FL (87-102); Mean Platelet Volume 8.9 FL (9.6-12.0); Monocytes % 9.4 % (1.7-12.7); Neutrophils % 56.2 % (38.7-73.9); Platelet Count 273 T/CUMM (130-400); Red Blood Count 3.26 MC/CUMM (3.8-5.5); Red Cell Distribution Width 13.9 % (9.3-17.3)
[2021-07-30 07:55] LABS: Calcium 9.3 MG/DL (8.5-10.1); Potassium 3.4 MMOL/L (3.5-5.1)
[2021-07-30 08:02] LABS: Band Neutrophils 1 % (0-10); Eosinophils 3 % (0-10); Hypochromia 1+; Lymphocytes 26 % (20-55); Reactive Lymphocytes Few; Segmented Neutrophils 62 % (50-85); Total Cells Counted 100
[2021-07-30 08:03] LABS: Macrocytosis Slight; Platelet Estimate Normal
[2021-07-30] MEDS: DOCUSATE SODIUM 100 MG CAPSULE PO SCH ×2 (09:30→21:28)
[2021-07-30] MEDS: LOSARTAN 25 MG TABLET PO SCH (09:30)
[2021-07-30] MEDS: PANTOPRAZOLE 40 MG TABLET PO SCH (09:30)
[2021-07-30] MEDS: GABAPENTIN 300 MG CAPSULE PO SCH ×3 (09:30→21:27)
[2021-07-30] MEDS: DULoxetine 30 MG CAPSULE PO SCH (09:30)
[2021-07-30] MEDS: MULTIVITAMIN (BEROCCA) TABLET PO SCH (09:30)
[2021-07-30] MEDS: POTASSIUM CHLORIDE 20 MEQ TABLET PO SCH (09:30)
[2021-07-30] MEDS: CHOLECALCIFEROL 1,000 UNIT TABLET PO SCH (09:30)
[2021-07-30] MEDS: APIXABAN 5 MG TABLET PO SCH ×2 (09:30→21:28)
[2021-07-30] MEDS: atenoloL 50 MG TABLET PO SCH ×2 (09:30→21:27)
[2021-07-30] MEDS: HYDROXYCHLOROQUINE 200 MG TABLET PO SCH ×2 (09:30→21:27)
[2021-07-30] MEDS: POLYETHYLENE GLYCOL POWDER 17 GM PACK PO SCH ×2 (09:30→21:26)
[2021-07-30] MEDS: MAGNESIUM CHLORIDE 64 MG TABLET PO SCH (09:30)
[2021-07-30] MEDS: OXYBUTYNIN XL 10 MG TABLET PO SCH (09:30)
[2021-07-30] MEDS: LUBIPROSTONE 8 MCG CAPSULE PO SCH ×2 (09:30→21:27)
[2021-07-30] MEDS: PHENAZOPYRIDINE 95 MG TABLET PO SCH ×2 (09:30→17:33)
[2021-07-30] MEDS: LINACLOTIDE 145 MCG CAPSULE PO SCH (10:02)
[2021-07-30] MEDS: VANCOMYCIN INJ 1,250 MG in SODIUM CHLORIDE 0.9% 250 ML IV SCH (10:12)
[2021-07-30] MEDS: PROMETHAZINE 25 MG/1 ML VIAL IM PRN (10:35)
[2021-07-30] MEDS ORDERED: BISACODYL 10 MG SUPP RECTAL ONE (11:56)
[2021-07-30] MEDS: oxyCODONE/ACETAMINOPHEN 5-325 MG TABLET PO PRN (15:28)
[2021-07-30] MEDS: LACTULOSE 20 GM/30 ML UDCUP PO SCH (21:27)
[2021-07-30] MEDS: TAMSULOSIN 0.4 MG CAPSULE PO SCH (21:27)
[2021-07-31] MEDS: HYDROmorphone 1 MG/1 ML SYRINGE IV PRN ×5 (02:30→21:12)
[2021-07-31] MEDS: PROMETHAZINE 25 MG/1 ML VIAL IM PRN (02:40)
[2021-07-31] MEDS: CEFTAROLINE 600 MG in SODIUM CHLORIDE 0.9% 100 ML IV SCH ×2 (03:59→11:55)
[2021-07-31] MEDS: VANCOMYCIN INJ 1,250 MG in SODIUM CHLORIDE 0.9% 250 ML IV SCH ×2 (04:48→21:11)
[2021-07-31] MEDS: LEVOTHYROXINE 137 MCG TABLET PO SCH (05:54)
[2021-07-31 06:17] LABS: Basophils # 0.1 10*3/uL (0.0-0.2); Eosinophils # 0.1 10*3/uL (0.0-0.87); Eosinophils % 2.6 % (0.00-10.9); Hematocrit 30.7 VOL% (35.7-47.0); Hemoglobin 9.2 GM/DL (12.0-16.0); Immature Granulocytes % 0.4 %; Immature Granulocytes Absolute 0.02 #; Lymphocytes # 1.4 10*3/uL (1.4-4.0); Lymphocytes % 25.5 % (21.3-54.2); Mean Platelet Volume 9.1 FL (9.6-12.0); Neutrophils % 59.5 % (38.7-73.9); Platelet Count 248 T/CUMM (130-400); Red Cell Distribution Width 13.9 % (9.3-17.3); White Blood Count 5.4 T/CUMM (4-12)
[2021-07-31 06:58] LABS: Platelet Estimate Normal
[2021-07-31 06:59] LABS: Anisocytosis 1+; Macrocytosis Slight
[2021-07-31 07:35] LABS: Osmolality,Calculated 280.1 MOS/KG (273-304)
[2021-07-31] MEDS: APIXABAN 5 MG TABLET PO SCH ×2 (09:30→21:05)
[2021-07-31] MEDS: PANTOPRAZOLE 40 MG TABLET PO SCH (09:30)
[2021-07-31] MEDS: MAGNESIUM CHLORIDE 64 MG TABLET PO SCH (09:30)
[2021-07-31] MEDS: CHOLECALCIFEROL 1,000 UNIT TABLET PO SCH (09:30)
[2021-07-31] MEDS: MULTIVITAMIN (BEROCCA) TABLET PO SCH (09:30)
[2021-07-31] MEDS: OXYBUTYNIN XL 10 MG TABLET PO SCH (09:30)
[2021-07-31] MEDS: PHENAZOPYRIDINE 95 MG TABLET PO SCH ×2 (09:30→17:06)
[2021-07-31] MEDS: DULoxetine 30 MG CAPSULE PO SCH (09:30)
[2021-07-31] MEDS: LUBIPROSTONE 8 MCG CAPSULE PO SCH ×2 (09:31→21:05)
[2021-07-31] MEDS: LOSARTAN 50 MG TABLET PO SCH (09:31)
[2021-07-31] MEDS: atenoloL 50 MG TABLET PO SCH ×2 (09:31→21:05)
[2021-07-31] MEDS: HYDROXYCHLOROQUINE 200 MG TABLET PO SCH ×2 (09:31→21:05)
[2021-07-31] MEDS: POTASSIUM CHLORIDE 20 MEQ TABLET PO SCH ×3 (09:31→21:05)
[2021-07-31] MEDS: GABAPENTIN 300 MG CAPSULE PO SCH ×3 (09:31→21:05)
[2021-07-31] MEDS: LACTULOSE 20 GM/30 ML UDCUP PO SCH ×2 (09:35→16:01)
[2021-07-31] MEDS: LINACLOTIDE 145 MCG CAPSULE PO SCH (09:35)
[2021-07-31] MEDS: POLYETHYLENE GLYCOL POWDER 17 GM PACK PO SCH ×2 (09:36→21:06)
[2021-07-31] MEDS: DOCUSATE SODIUM 100 MG CAPSULE PO SCH ×2 (09:36→21:06)
[2021-07-31] MEDS: SODIUM CHLORIDE 0.9% 1,000 ML IV SCH ×2 (09:55→10:55)
[2021-07-31] MEDS: oxyCODONE/ACETAMINOPHEN 5-325 MG TABLET PO PRN (13:37)
[2021-07-31] MEDS: TAMSULOSIN 0.4 MG CAPSULE PO SCH (21:05)
[2021-08-01] MEDS: HYDROmorphone 1 MG/1 ML SYRINGE IV PRN ×2 (03:21→09:00)
[2021-08-01] MEDS: LEVOTHYROXINE 137 MCG TABLET PO SCH (05:47)
[2021-08-01 05:51] LABS: Basophils # 0.1 10*3/uL (0.0-0.2); Basophils % 1.8 % (0.0-0.8); Eosinophils # 0.1 10*3/uL (0.0-0.87); Eosinophils % 2.3 % (0.00-10.9); Hematocrit 30.5 VOL% (35.7-47.0); Hemoglobin 9.2 GM/DL (12.0-16.0); Immature Granulocytes % 0.5 %; Immature Granulocytes Absolute 0.03 #; Lymphocytes # 1.3 10*3/uL (1.4-4.0); Lymphocytes % 23.7 % (21.3-54.2); Mean Corpuscular HGB Conc 30.2 GM/DL (32-36); Mean Corpuscular Volume 100.7 FL (87-102); Mean Platelet Volume 9.1 FL (9.6-12.0); Monocytes % 10.4 % (1.7-12.7); Neutrophils % 61.3 % (38.7-73.9); Platelet Count 269 T/CUMM (130-400); Red Blood Count 3.03 MC/CUMM (3.8-5.5); Red Cell Distribution Width 14.2 % (9.3-17.3); White Blood Count 5.6 T/CUMM (4-12)
[2021-08-01 06:09] LABS: Calcium 9.6 MG/DL (8.5-10.1); Osmolality,Calculated 280.1 MOS/KG (273-304); Potassium 3.4 MMOL/L (3.5-5.1)
[2021-08-01 06:27] LABS: Platelet Estimate Normal
[2021-08-01 06:28] LABS: Anisocytosis Slight; Macrocytosis Slight
[2021-08-01] MEDS: LINACLOTIDE 145 MCG CAPSULE PO SCH (08:59)
[2021-08-01] MEDS ORDERED: LACTULOSE 20 GM/30 ML UDCUP PO SCH (09:00)
[2021-08-01] MEDS: APIXABAN 5 MG TABLET PO SCH (09:02)
[2021-08-01] MEDS: POTASSIUM CHLORIDE 20 MEQ TABLET PO SCH (09:02)
[2021-08-01] MEDS: HYDROXYCHLOROQUINE 200 MG TABLET PO SCH (09:02)
[2021-08-01] MEDS: GABAPENTIN 300 MG CAPSULE PO SCH (09:02)
[2021-08-01] MEDS: MULTIVITAMIN (BEROCCA) TABLET PO SCH (09:03)
[2021-08-01] MEDS: OXYBUTYNIN XL 10 MG TABLET PO SCH (09:03)
[2021-08-01] MEDS: LOSARTAN 50 MG TABLET PO SCH (09:03)
[2021-08-01] MEDS: POLYETHYLENE GLYCOL POWDER 17 GM PACK PO SCH (09:03)
[2021-08-01] MEDS: LUBIPROSTONE 8 MCG CAPSULE PO SCH (09:03)
[2021-08-01] MEDS: DOCUSATE SODIUM 100 MG CAPSULE PO SCH (09:03)
[2021-08-01] MEDS: DULoxetine 30 MG CAPSULE PO SCH (09:03)
[2021-08-01] MEDS: PHENAZOPYRIDINE 95 MG TABLET PO SCH (09:03)
[2021-08-01] MEDS: MAGNESIUM CHLORIDE 64 MG TABLET PO SCH (09:04)
[2021-08-01] MEDS: PANTOPRAZOLE 40 MG TABLET PO SCH (09:04)
[2021-08-01] MEDS: CHOLECALCIFEROL 1,000 UNIT TABLET PO SCH (09:04)
[2021-08-01] MEDS: atenoloL 50 MG TABLET PO SCH (09:04)
[2021-08-01] MEDS: oxyCODONE/ACETAMINOPHEN 5-325 MG TABLET PO PRN (10:56)
[2021-08-01 11:24] VITALS: BP 159/94
[2021-08-01] MEDS: SODIUM CHLORIDE 0.9% 1,000 ML IV SCH (12:48)
== END 2021-08-01 14:17 | disposition home or self-care (01) | DRG 347 ==
LOC: N.EDINP 14:05 → N.ED 14:05 → SUATTDRO 07-19 12:37 → N.5E 07-19 13:57
PROVIDERS: ADMIT Internal Medicine; ATTEND Hospitalist